=== PATIENT | male | born 1955 | race Caucasian/White ===

== ENCOUNTER 2016-11-03 09:28 | Day surgery (SDC) | payer BC ==
--- NOTE | 2016-11-02 12:40 | PCM.PREANE ---
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 Respiratory: Reports: no symptoms Cardiovascular: Reports: no symptoms GI: Reports: no symptoms - PHYSICAL ASSESSMENT Height: 1.75 m Weight: 95.254 kg ASA Class: 2 Mental Status: alert & oriented x3 Dentition: Reports: normal dentition ROM/Head Extension: full Respiratory Status: lungs clear to auscultation bilaterally Cardiovascular Status: regular rate & rhythm, normal S1, S2, no murmur - ALLERGIES Allergies/Adverse Reactions: Allergies Allergy/AdvReac Type Severity Reaction Status Date / Time No Known Allergies Allergy Verified 11/18/15 18:13 - BLOOD Blood Available: No - ANESTHESIA PLAN Preop Beta John Paul: No Anesthesia Type Planned: MAC - ACKNOWLEDGEMENTS Pt an appropriate candidate for the planned anesthesia: Yes Alternatives and risks of anesthesia discussed w pt/guardian: Yes Pt/Guardian understands and agree with anesthesia plan: Yes PreAnesthesia Questionnaire Cardiovascular History: Reports: High cholesterol, Hypertension Respiratory History: Reports: Sleep apnea Other Respiratory History: uses CPAP Other Gastrointestinal History: diverticulitis Musculoskeletal History: Reports: Fracture Other Musculoskeletal History: hx tx for fx hand Endocrine/Metabolic History: Reports: Hypothyroidism, Obesity/BMI 30+ - Past Surgical History Head Surgeries/Procedures: Reports: None GI Surgical History: Reports: Colonoscopy Musculoskeletal Surgical History: Reports: Arthroscopic knee, Shoulder surgery, Other (see below) Other Musculoskeletal Surgeries/Procedures:: left acl replaced, right rotator cuff, degloving right hand, - SUBSTANCE USE Smoking Status *Q: Never Smoker Recreational Drug Use History: No - HOME MEDS Home Medications: Home Meds Ezetimibe [Zetia] 10 mg PO DAILY 11/18/15 [History] Levothyroxine Sodium [Levothyroxine Sodium] 125 mg PO DAILY 11/18/15 [History] Rosuvastatin [Crestor] 20 mg PO DAILY 11/18/15 [History] Aspirin [[place] Aspirin] 81 mg PO DAILY 09/29/16 [History] Losartan Potassium 25 mg PO DAILY 09/29/16 [History]
[~2016-11-03 09:28] MED LIST: Lactated Ringers 1,000 ML IV SCH; Sodium Chloride 0.9% 10 ML Syringe FLUSH PRN; Sodium Chloride 0.9% 2.5 ML Syringe FLUSH PRN
[2016-11-03] MEDS ORDERED: Lidocaine 2% 5 ML SDV ONE (11:04)
[2016-11-03] MEDS ORDERED: Propofol 200 MG/20 ML SDV ONE ×2 (11:05→11:36)
[2016-11-03] MEDS ORDERED: fentaNYL 100 MCG/2 ML SDV ONE (11:05)
[2016-11-03] MEDS ORDERED: Midazolam 1 MG/ML 2 ML SDV ONE (11:05)
--- NOTE | 2016-11-03 11:52 | PCM.OPNOTE ---
- General Post-Op/Procedure Note Date of Surgery/Procedure: 11/03/16 Operative Procedure(s): Colonoscopy Findings: 2, 2mm polyps in sigmoid colon Pre Op Diagnosis: Screening colonoscopy Post-Op Diagnosis: Sigmoid colon polyp x 2 Anesthesia Technique: MAC Primary Surgeon: Florina Franco Condition: Good
--- NOTE | 2016-11-03 12:18 | PCM.POSTAN ---
POST ANESTHESIA ASSESSMENT - MENTAL STATUS Mental Status: alert, oriented - RESPIRATORY Respiratory Status: respiratory rate WNL, airway patent - CARDIOVASCULAR CV Status: pulse rate WNL, blood pressure stable - GASTROINTESTINAL GI Status: no symptoms - POST OP HYDRATION Hydration Status: adequate & stable
--- NOTE | 2016-11-03 12:19 | PCM48HPAN ---
Post Anesthesia Note - EVALUATION WITHIN 48HRS OF ANESTHETIC Vital Signs in Normal Range: Yes Patient Participated in Evaluation: Yes Respiratory Function Stable: Yes Airway Patent: Yes Cardiovascular Function Stable: Yes Hydration Status Stable: Yes Pain Control Satisfactory: Yes Nausea and Vomiting Control Satisfactory: Yes Mental Status Recovered: Yes
[2016-11-03 12:49] VITALS: BP 106/63
--- NOTE | 2016-11-03 15:22 | OR ---
SURGEON: YINA PIERCE MD DATE OF PROCEDURE: PREOPERATIVE DIAGNOSIS: Screening colonoscopy. POSTOPERATIVE DIAGNOSIS: Sigmoid colon polyps x2. PROCEDURE PERFORMED: Colonoscopy. INSTRUMENT USED: Olympus colonoscope. ANESTHESIA: MAC. EXTENT OF EXAM: To the cecum. PREPARATION: Good. LIMITATIONS: None. INDICATIONS FOR EXAMINATION: The patient is a 61-year-old male, who presents for a screening colonoscopy. We discussed the procedure as well as expected perioperative course. We discussed the risks, including bleeding, infection, or damage to surrounding structures, including perforation. The patient verbalized understanding and wished to proceed. PROCEDURE IN DETAIL: The patient was brought to the endoscopy suite and placed in a left lateral decubitus position. A time-out was completed verifying the patient's name, age, date of , allergies, and procedure to be performed. Monitored anesthesia care was induced and continuous oxygen was provided via face mask throughout the procedure. After adequate sedation was achieved, a digital rectal exam was performed. This examination was within normal limits. A well lubricated colonoscope was then inserted in the rectum and advanced under direct visualization to the level of cecum. The cecum was identified by both visual and anatomic landmarks. A photograph was taken of the cecal cap. I was unable to retroflex the scope within the cecum after multiple attempts. The scope was then fully withdrawn while examining the color, texture, anatomy, and integrity of the mucosa from the cecum to the anal canal. Two 2 mm pedunculated polyps were found within the sigmoid colon between the 30 and 35 cm kellen. These were removed with hot snare forceps. They were labeled as sigmoid colon polyps. The scope was then brought into the rectum and retroflexed to allow visualization of the anal canal opening which appeared normal. A photograph was taken. The anus to cecum time was 22 minutes. The patient was then transferred to the recovery room in stable condition. ENDOSCOPIC DIAGNOSIS: Two sigmoid colon polyps. RECOMMENDATIONS: Follow up in the clinic in 2 weeks. MYRA IGLESIAS /[id number]
== END 2016-11-03 12:48 | disposition home or self-care (01) ==
LOC: MW.SDS 09:28
PROVIDERS: ATTEND Surgery
PROC: 0DBN8ZZ Excision of Sigmoid Colon, Via Natural or Artificial Opening Endoscopic (ICD-10-PCS; principal; 2016-11-03)
DX: Z12.11 Encounter for screening for malignant neoplasm of colon (principal); D12.5 Benign neoplasm of sigmoid colon; K42.9 Umbilical hernia without obstruction or gangrene; K40.20 Bilateral inguinal hernia, without obstruction or gangrene, not specified as recurrent; Z87.19 Personal history of other diseases of the digestive system; Z80.0 Family history of malignant neoplasm of digestive organs; I10 Essential (primary) hypertension; E78.5 Hyperlipidemia, unspecified; E03.9 Hypothyroidism, unspecified; G47.30 Sleep apnea, unspecified; E66.9 Obesity, unspecified; Z79.82 Long term (current) use of aspirin; Z79.899 Other long term (current) drug therapy
CPT/HCPCS: 45385; J2250; J3010; J7120; 88305; J2704

== ENCOUNTER 2016-11-09 06:28 | Day surgery (SDC) | payer BC ==
[~2016-11-09 06:28] MED LIST changes: +ceFAZolin 2 GM in Premix Bag 1 BAG IV ONE
--- NOTE | 2016-11-09 06:52 | PCM.PREANE ---
Preanesthetic Assessment - Anesthesia/Transfusion/Family Hx Anesthesia History: Prior Anesthesia Without Reaction Transfusion History: No Prior Transfusion(s) - Physical Assessment O2 Sat by Pulse Oximetry: 95 Respiratory Rate: 16 Vital Signs: Last Vital Signs Temp 36.3 C 11/09/16 06:37 Pulse 72 11/09/16 06:37 Resp 16 11/09/16 06:37 BP 119/69 11/09/16 06:37 Pulse Ox 95 11/09/16 06:37 Height: 1.75 m Weight: 95.254 kg - Allergies Allergies/Adverse Reactions: Allergies Allergy/AdvReac Type Severity Reaction Status Date / Time No Known Allergies Allergy Verified 11/18/15 18:13 PreAnesthesia Questionnaire Cardiovascular History: Reports: High cholesterol, Hypertension Respiratory History: Reports: Sleep apnea Other Respiratory History: uses CPAP Other Gastrointestinal History: diverticulitis Musculoskeletal History: Reports: Fracture Other Musculoskeletal History: hx tx for fx hand Endocrine/Metabolic History: Reports: Hypothyroidism, Obesity/BMI 30+ - Past Surgical History Head Surgeries/Procedures: Reports: None GI Surgical History: Reports: Colonoscopy ( a week ago) Musculoskeletal Surgical History: Reports: Arthroscopic knee, Shoulder surgery, Other (see below) Other Musculoskeletal Surgeries/Procedures:: left acl replaced, right rotator cuff, degloving right hand, - SUBSTANCE USE Smoking Status *Q: Never Smoker Recreational Drug Use History: No - HOME MEDS Home Medications: Home Meds Ezetimibe [Zetia] 10 mg PO DAILY 11/18/15 [History] Levothyroxine Sodium 125 mg PO DAILY 11/18/15 [History] Rosuvastatin [Crestor] 20 mg PO DAILY 11/18/15 [History] Aspirin [[place] Aspirin] 81 mg PO DAILY 09/29/16 [History] Losartan Potassium 25 mg PO DAILY 09/29/16 [History] - CURRENT (IN HOUSE) MEDS Current Meds: Current Medications Lactated Ringer's (Ringers, Lactated) 1,000 mls @ 125 mls/hr IV ASDIRECTED SARAH Last Admin: 11/09/16 06:39 Dose: 125 mls/hr Sodium Chloride (Saline Flush) 10 ml FLUSH ASDIRECTED PRN PRN Reason: Keep Vein Open Sodium Chloride (Saline Flush) 2.5 ml FLUSH ASDIRECTED PRN PRN Reason: Keep Vein Open Discontinued Medications Cefazolin Sodium/Dextrose 2 gm (/ Premix) 50 mls @ 100 mls/hr IV ONETIME ONE Stop: 11/08/16 15:42 Preanesthetic Assessment - ANESTHESIA/TRANSFUSION/FAMILY HX Anesthesia/Transfusion History: Prior Anesthesia Type of Anesthesia Reaction: Denies: Allergy, Anesthesia Awareness, Excessive Somnolence, Excessive Nausea/Vomiting, Excessive Itching, Excessive Shivering, Malignant Hyperthermia, Malignant Hyperthermia, Family History, Pseudocholinesterase Deficiency, Pseudocholinesterase Deficiency, Family History of, Urinary Retention, Unknown, Other (see below) Family History of Anesthesia Reaction: No Other Intubation History Comment: no known problems - REVIEW OF SYSTEMS Constitutional: Reports: 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 Respiratory: Reports: no symptoms Cardiovascular: Reports: no symptoms GI: Reports: no symptoms Other: Reports: None - PHYSICAL ASSESSMENT O2 Sat by Pulse Oximetry: 95 RR: 16 Vital Signs: Last Vital Signs Temp 36.3 C 11/09/16 06:37 Pulse 72 11/09/16 06:37 Resp 16 11/09/16 06:37 BP 119/69 11/09/16 06:37 Pulse Ox 95 11/09/16 06:37 Height: 1.75 m Weight: 95.254 kg ASA Class: 2 Mental Status: Alert & Oriented x3 Airway Class: Mallampati = 2 Dentition: Reports: Normal Dentition Thyro-Mental Finger Breadths: 3 Mouth Opening Finger Breadths: 3 ROM/Head Extension: Limited/Partial Respiratory Status: lungs clear to auscultation bilaterally Cardiovascular Status: regular rate & rhythm, normal S1, S2, no murmur, blood pressure WNL - ALLERGIES Allergies/Adverse Reactions: Allergies Allergy/AdvReac Type Severity Reaction Status Date / Time No Known Allergies Allergy Verified 11/18/15 18:13 - BLOOD Blood Available: No - ANESTHESIA PLAN Preop Beta John Paul: No Anesthesia Type Planned: General Anesthesia - ACKNOWLEDGEMENTS Pt an Appropriate Candidate for the Planned Anesthesia: Yes Alternatives and Risks of Anesthesia Discussed w Pt/Guardian: Yes Pt/Guardian Understands and Agrees with Anesthesia Plan: Yes
[2016-11-09] MEDS ORDERED: Rocuronium 10 MG/ML 10 ML Syringe ONE (07:23)
[2016-11-09] MEDS ORDERED: Ondansetron 4 MG/2 ML SDV ONE (07:23)
[2016-11-09] MEDS ORDERED: Lidocaine 2% 5 ML SDV ONE (07:23)
[2016-11-09] MEDS ORDERED: Propofol 200 MG/20 ML SDV ONE (07:24)
[2016-11-09] MEDS ORDERED: fentaNYL 250 MCG/5 ML SDV ONE (07:24)
[2016-11-09] MEDS ORDERED: Midazolam 1 MG/ML 2 ML SDV ONE (07:24)
[2016-11-09] MEDS ORDERED: Bupivacaine 0.25%/EPINEPHrine 1:200,000 10 ML SDV ONE (07:27)
[2016-11-09] MEDS ORDERED: Bupivacaine 0.5% 10 ML SDV ONE (07:27)
[2016-11-09] MEDS ORDERED: ceFAZolin 1 GM Vial ONE (07:28)
[2016-11-09] MEDS ORDERED: Dexamethasone 4 MG/ML 5 ML MDV ONE (07:58)
[2016-11-09] MEDS ORDERED: HYDROmorphone 2 MG/ML Syringe ONE (07:59)
[2016-11-09] MEDS ORDERED: ePHEDrine 50 MG/ML SDV ONE (08:16)
[2016-11-09] MEDS ORDERED: Phenylephrine/Normal Saline 100 MCG/ML 10 ML Syringe ONE (09:00)
[2016-11-09] MEDS ORDERED: Phenylephrine 1% 10 MG/ML SDV ONE (09:00)
[2016-11-09] MEDS ORDERED: Ketorolac 30 MG/ML SDV ONE (09:32)
[2016-11-09] MEDS ORDERED: Octyl 2-Cyanoacrylate 1 Tube ONE (10:02)
[2016-11-09] MEDS ORDERED: Acetaminophen/oxyCODONE 325-5 MG Tab PO PRN (10:41)
--- NOTE | 2016-11-09 10:41 | PCM.OPNOTE ---
- General Post-Op/Procedure Note Date of Surgery/Procedure: 11/09/16 Operative Procedure(s): Bilateral inguinal hernia, umbilical hernia repair Findings: Bilateral fat containing indirect hernias, 5mm supraumbilical hernia Pre Op Diagnosis: Umbilical hernia, bilateral inguinal hernias Post-Op Diagnosis: same Anesthesia Technique: MAC Primary Surgeon: Florina Franco Fluid Replacement, Intraop: 2,500 Output, Urine Amount: 200 EBL in mLs: 20 Condition: Good
[2016-11-09] MEDS: fentaNYL 100 MCG/2 ML SDV IVPUSH PRN ×2 (11:00→11:05)
--- NOTE | 2016-11-09 11:35 | PCM.POSTAN ---
POST ANESTHESIA ASSESSMENT - MENTAL STATUS Mental Status: alert - RESPIRATORY Respiratory Status: respiratory rate WNL, airway patent, O2 saturation stable - CARDIOVASCULAR CV Status: pulse rate WNL, blood pressure stable - GASTROINTESTINAL GI Status: no symptoms - PAIN Pain Score: 5 - POST OP HYDRATION Hydration Status: adequate & stable - OBSERVATIONS Free Text/Narrative:: no anesthesia problems
[2016-11-09 14:21] VITALS: BP 121/67
--- NOTE | 2016-11-10 13:00 | OR ---
SURGEON: YINA PIERCE MD DATE OF PROCEDURE: 11/09/2016 PREOPERATIVE DIAGNOSIS: Bilateral inguinal hernias, umbilical hernia. POSTOPERATIVE DIAGNOSIS: Bilateral indirect inguinal hernias, umbilical hernia. PROCEDURE PERFORMED: Bilateral inguinal hernia repair, umbilical hernia repair. FLUIDS: 2500 mL crystalloid. EBL: 20 mL. URINE OUTPUT: 200. FINDINGS: Bilateral fat containing indirect hernias. A 5 mm umbilical hernia. COMPLICATIONS: None. INDICATIONS: The patient is a 61-year-old male who presented to my clinic with complaints of a left inguinal hernia. He had recently had a CT done that showed an umbilical and right inguinal hernia. He was told he had these hernias and after finding out about them, realized that the right groin discomfort he was having was most likely due to this hernia. The patient came to me requesting to have all 3 hernias fixed at the same time. We discussed the procedure as well as expected perioperative course. We discussed the risks of the procedure including bleeding, infection, or damage to surrounding structures. The patient verbalized understanding and wishes to proceed. PROCEDURE IN DETAIL: The patient was brought into the operating room and placed on the operating room table in supine position. A time-out was completed verifying the patient's name, age, date of , allergies, and procedure to be performed. General endotracheal anesthesia was then induced. The abdomen was prepped and draped in the usual sterile fashion. We first started on the right side as this side was most symptomatic. A field block was produced by raising skin wheals along the proposed skin incision. Additional local anesthesia (0.5% marcaine) was injected 1 cm lateral and superior to the anterior superior iliac spine. An incision was made approximately 2 fingerbreadths above the inguinal ligament using a 15 blade and deepened through Camper's and Nisha's fascia with electrocautery until the aponeurosis of the external oblique was encountered. This was cleaned and the external ring was exposed. Hemostasis was achieved in the wound. An incision was made in the midportion of the external oblique aponeurosis in the direction of its fibers. The ilioinguinal nerve was identified and protected throughout the dissection. The flaps of the external oblique were developed cephalad and inferiorly. The cord was identified. It was gently dissected free at the pubic tubercle and encircled with a Candis drain. Attention was directed to the anteromedial aspect of the cord, where an indirect hernia sac was identified with a small amount of preperitoneal fat in it. The sac was carefully dissected free of the cord down to the level of the internal ring. The sac itself was flimsy and was opened. The contents were inspected for any bowel and none was noted.The vas and testicular vessels were identified and protected from harm. A finger was passed in the peritoneal cavity and the floor of the inguinal canal assessed and found to be strong. The preperitoneal fat was not able to be reduced so it was clamped and suture-ligated with 3-0 silk. The redundant fat was then excised and sent to pathology. A large polypropylene mesh patch was brought into the field. This was slightly to large so it was trimmed to fit. This was sutured to the pubic tubercle proximally using 0 Ethibond suture. The mesh was then sutured to the inguinal ligament inferiorly and to the conjoint tendon superiorly using interrupted 0 Ethibond suture. The tails of the mesh were wrapped around the cord. Care was taken to assure the mesh was placed in a relaxed fashion to avoid excessive tension and that no neurovascular structures were caught in the repair. Laterally, the tails of the mesh were crossed and the internal ring created allowing passage of the very tip of my finger. Hemostasis was again checked. The Candis drain was removed. The external oblique aponeurosis was closed with a running suture of 3-0 Vicryl taking care not to catch the ilioinguinal nerve and the suture line. Nisha's fascia was then closed with interrupted 3-0 Vicryl. I then turned my attention to the left side. Using 0.5% Marcaine, a field block was then again done. I made an incision 2 to 3 fingerbreadths above the inguinal ligament using a 15 blade. This was deepened through Nisha's and Camper's fascia with electrocautery until the aponeurosis of the external oblique was encountered. This was cleaned and the external ring was exposed. Hemostasis was achieved in the wound. An incision was made in the midportion of the external oblique aponeurosis in the direction of its fibers. The ilioinguinal nerve was identified and protected throughout the dissection. Flaps of the external oblique were developed cephalad and inferiorly. The cord was identified. It was gently dissected free at the pubic tubercle and encircled with a [place] drain. Attention was directed to the anteromedial aspect of the cord where an indirect hernia sac was identified. The sac was carefully dissected free of the cord down to the level of the internal ring. The vas and testicular vessels were identified and protected from harm. The sac was opened and the contents were reduced. A finger was passed in the peritoneal cavity, and the floor of the inguinal canal assessed and found to be strong. Since I was able to easily reduce the contents, the sac was not resected. Attention was turned to the floor of the canal, which was strong. A large polypropylene mesh patch was brought into the field and cut to the appropriate size with an oval port medial portion and a longitudinal lateral opening. Beginning at the pubic tubercle, the mesh was sutured to the pubic tubercle using an interrupted 0 Ethibond suture. The mesh was then sutured to the inguinal ligament inferiorly and conjoint tendon superiorly using interrupted 0 Ethibond sutures. Care was taken to assure that the mesh was placed in a relaxed fashion to avoid excessive tension and that no neurovascular structures were caught in the repair. Laterally, the tails of the mesh were crossed and the internal ring recreated allowing for passage of the very tip of my finger. Hemostasis was again checked. The Candis drain was removed. The external oblique aponeurosis was closed with a running suture 3-0 Vicryl taking care not to catch the ilioinguinal nerve and the suture line. Nisha's fascia was closed with interrupted 3-0 Vicryl. I then turned my attention to the umbilicus. A supraumbilical incision was made along the supraumbilical skin fold. Dissection was carried down to the level of the fascia using electrocautery. A small 5-mm defect was noted at the supraumbilical fascia. A small fat-containing hernia sac was noted. This was freed from the surrounding subcuticular structures with gentle blunt dissection and able to be easily reduced. Given the small size of the hernia, the decision was made to repair this primarily. The defect was closed in horizontal fashion using 0 Ethibond sutures. The umbilical stalk was then anchored to the surrounding structures with interrupted 3-0 Vicryl. All skin incisions were then closed with a subcuticular suture of 4-0 Monocryl. Dermabond was applied at the umbilicus and Steri-Strips were applied along the inguinal incisions. Sterile dressings were applied. Counts were complete and correct at the end of the case. The patient was extubated and taken to the PACU in stable condition. MYRA IGLESIAS /[id number] MTDD
== END 2016-11-09 15:10 | disposition home or self-care (01) ==
LOC: MW.SDS 06:28
PROVIDERS: ATTEND Surgery
PROC: 0YUA0JZ Supplement Bilateral Inguinal Region with Synthetic Substitute, Open Approach (ICD-10-PCS; principal; 2016-11-09)
PROC: 0WUF0JZ Supplement Abdominal Wall with Synthetic Substitute, Open Approach (ICD-10-PCS; 2016-11-09)
DX: K40.20 Bilateral inguinal hernia, without obstruction or gangrene, not specified as recurrent (principal); K42.9 Umbilical hernia without obstruction or gangrene; I10 Essential (primary) hypertension; E78.00 Pure hypercholesterolemia, unspecified; G47.30 Sleep apnea, unspecified; E03.9 Hypothyroidism, unspecified; E66.9 Obesity, unspecified; Z79.82 Long term (current) use of aspirin; Z79.899 Other long term (current) drug therapy; Z98.890 Other specified postprocedural states; Z68.31 Body mass index [BMI] 31.0-31.9, adult
CPT/HCPCS: 49505; 49585; 88302; A9270; C1781; J1100; J1170; J1885; J2250; J2370; J2405; J3010; J7120; 00830; J0690; J2704

== ENCOUNTER → 2016-11-13 | Outpatient (CLI) | payer BC ==
[~2016-11-13] MED LIST changes: +Iopamidol 755 MG/ML 500 ML Multipack Bottle IVPUSH STA; -Lactated Ringers 1,000 ML IV SCH; -Sodium Chloride 0.9% 10 ML Syringe FLUSH PRN; -Sodium Chloride 0.9% 2.5 ML Syringe FLUSH PRN; -ceFAZolin 2 GM in Premix Bag 1 BAG IV ONE
--- NOTE | 2016-11-13 11:31 | CT ---
EXAMINATION: CT chest with and without contrast HISTORY: Solitary pulmonary nodule COMPARISON: CT abdomen and pelvis dated 11/18/2015. TECHNIQUE: Axial CT images obtained through the chest before and following the administration of 75 mL of Isovue-370 in the right antecubital fossa. Coronal and sagittal reconstructions obtained. FINDINGS: There is a stable 7 x 4 mm intrafissural nodule within the left lung. Mild dependent atele ctasis is noted. No pleural effusion or pneumothorax. The heart is normal in size without a pericard ial effusion. Coronary artery calcifications are present. The thoracic aorta is normal in caliber. T he main and central pulmonary arteries appear normal. No mediastinal, axillary, hilar lymphadenopath y. The central airways are clear. There is a tiny 8 mm enhancing lesion within the posterior right hepatic lobe, most likely represent ing an atypical hemangioma. No suspicious osseous abnormalities. IMPRESSION: 1. There is a stable nodule within the left lung, likely an intrafissural lymph node, unchanged. 2. No acute cardiopulmonary findings. 3. Coronary artery calcifications and stents noted. 4. Tiny hyperenhancing millimeter right hepatic nodule , likely an atypical hemangioma.
== END ==
LOC: MW.DI 08:20
PROVIDERS: ATTEND Surgery
DX: R91.1 Solitary pulmonary nodule (principal); Z95.5 Presence of coronary angioplasty implant and graft
CPT/HCPCS: 71270; Q9967

== ENCOUNTER 2017-02-07 09:04 | Day surgery (SDC) | payer BC ==
[~2017-02-07 09:04] MED LIST changes: +Bupivacaine 0.25%/EPINEPHrine 1:200,000 10 ML SDV ONE; +Bupivacaine 0.5% 30 ML SDV ONE; -Iopamidol 755 MG/ML 500 ML Multipack Bottle IVPUSH STA; +Lactated Ringers 1,000 ML IV SCH; +Lidocaine 2% 5 ML SDV ONE; +Midazolam 1 MG/ML 2 ML SDV ONE; +Propofol 200 MG/20 ML SDV ONE; +Rocuronium 10 MG/ML 10 ML Syringe ONE; +Sodium Chloride 0.9% 10 ML Syringe FLUSH PRN; +Sodium Chloride 0.9% 2.5 ML Syringe FLUSH PRN; +Succinylcholine/Normal Saline 200 MG/10 ML Syringe ONE; +ceFAZolin 2 GM in Premix Bag 1 BAG IV ONE; +fentaNYL 100 MCG/2 ML SDV ONE
--- NOTE | 2017-02-07 10:04 | PCM.PREANE ---
Preanesthetic Assessment - Anesthesia/Transfusion/Family Hx Anesthesia History: Prior Anesthesia Without Reaction Family History of Anesthesia Reaction: No Transfusion History: No Prior Transfusion(s) Intubation History: Unknown - Review of Systems General: No Symptoms Pulmonary: No Symptoms Cardiovascular: No Symptoms Gastrointestinal: No symptoms Neurological: No Symptoms Other: Reports: None - Physical Assessment NPO Status Date: 02/06/17 NPO Status Time: 19:00 O2 Sat by Pulse Oximetry: 98 Respiratory Rate: 16 Vital Signs: Last Vital Signs Temp 36.7 C 02/07/17 09:09 Pulse 60 02/07/17 09:09 Resp 16 02/07/17 09:09 BP 144/93 H 02/07/17 09:09 Pulse Ox 98 02/07/17 09:09 Height: 1.75 m Weight: 95.254 kg ASA Class: 2 Mental Status: Alert & Oriented x3 Airway Class: Mallampati = 2 Dentition: Reports: Normal Dentition Thyro-Mental Finger Breadths: 3 Mouth Opening Finger Breadths: 3 ROM/Head Extension: Full Lungs: Clear to auscultation, Normal respiratory effort Cardiovascular: Regular Rate, Regular Rhythm - Allergies Allergies/Adverse Reactions: Allergies Allergy/AdvReac Type Severity Reaction Status Date / Time No Known Allergies Allergy Verified 11/18/15 18:13 - Blood Blood Available: No - Anesthesia Plan Pre-Op Medication Ordered: None - Acknowledgements Anesthesia Type Planned: General Anesthesia Pt an Appropriate Candidate for the Planned Anesthesia: Yes Alternatives and Risks of Anesthesia Discussed w Pt/Guardian: Yes Pt/Guardian Understands and Agrees with Anesthesia Plan: Yes PreAnesthesia Questionnaire Cardiovascular History: Reports: High Cholesterol, Hypertension Respiratory History: Reports: Sleep Apnea Other Respiratory History: uses CPAP Other Gastrointestinal History: diverticulitis Musculoskeletal History: Reports: Fracture Other Musculoskeletal History: hx tx for fx hand Endocrine/Metabolic History: Reports: Hypothyroidism, Obesity/BMI 30+ - Past Surgical History Head Surgeries/Procedures: Reports: None GI Surgical History: Reports: Colonoscopy, Hernia, Inguinal (bilateral inguinal hernia 3 months ago with umbilical hernia repair) Musculoskeletal Surgical History: Reports: Arthroscopic Knee, Shoulder Surgery, Other (See Below) Other Musculoskeletal Surgeries/Procedures:: left acl replaced, right rotator cuff, degloving right hand, - SUBSTANCE USE Smoking Status *Q: Never Smoker Recreational Drug Use History: No - HOME MEDS Home Medications: Home Meds Ezetimibe [Zetia] 10 mg PO DAILY 11/18/15 [History] Levothyroxine Sodium 125 mg PO DAILY 11/18/15 [History] Rosuvastatin [Crestor] 20 mg PO DAILY 11/18/15 [History] Aspirin [[place] Aspirin] 81 mg PO DAILY 09/29/16 [History] Losartan Potassium 25 mg PO DAILY 09/29/16 [History] - CURRENT (IN HOUSE) MEDS Current Meds: Current Medications Lactated Ringer's (Ringers, Lactated) 1,000 mls @ 125 mls/hr IV ASDIRECTED SARAH Last Admin: 02/07/17 09:35 Dose: 125 mls/hr Sodium Chloride (Saline Flush) 10 ml FLUSH ASDIRECTED PRN PRN Reason: Keep Vein Open Sodium Chloride (Saline Flush) 2.5 ml FLUSH ASDIRECTED PRN PRN Reason: Keep Vein Open Discontinued Medications Bupivacaine HCl (Marcaine 0.5%) Confirm Administered Dose 30 ml .ROUTE .STK-MED ONE Stop: 02/07/17 06:52 Bupivacaine HCl/Epinephrine Bitart (Marcaine 0.25%/Epinephrine 1:200,000) Confirm Administered Dose 70 ml .ROUTE .STK-MED ONE Stop: 02/07/17 07:33 Fentanyl (Sublimaze) Confirm Administered Dose 100 mcg .ROUTE .STK-MED ONE Stop: 02/07/17 08:33 Cefazolin Sodium/Dextrose 2 gm (/ Premix) 50 mls @ 100 mls/hr IV ONETIME ONE Stop: 02/06/17 17:42 Lidocaine (Xylocaine-Mpf 2%) Confirm Administered Dose 5 ml .ROUTE .STK-MED ONE Stop: 02/07/17 08:32 Midazolam HCl (Versed 1 Mg/Ml) Confirm Administered Dose 2 mg .ROUTE .STK-MED ONE Stop: 02/07/17 08:33 Propofol (Diprivan 20 Ml) Confirm Administered Dose 200 mg .ROUTE .STK-MED ONE Stop: 02/07/17 08:33 Rocuronium [place] (Zemuron) Confirm Administered Dose 100 mg .ROUTE .STK-MED ONE Stop: 02/07/17 08:32 Succinylcholine Chloride (Succinylcholine In Ns Pf) Confirm Administered Dose 200 mg .ROUTE .STK-MED ONE Stop: 02/07/17 08:32
[2017-02-07] MEDS ORDERED: Bupivacaine 0.25%/EPINEPHrine 1:200,000 10 ML SDV ONE ×2 (10:54→12:57)
[2017-02-07] MEDS ORDERED: Sodium Chloride 0.9% 40 ML ONE (11:05)
[2017-02-07] MEDS ORDERED: ceFAZolin 1 GM Vial ONE (11:05)
[2017-02-07] MEDS ORDERED: HYDROmorphone 2 MG/ML Syringe ONE (11:37)
[2017-02-07] MEDS ORDERED: Phenylephrine/Normal Saline 100 MCG/ML 10 ML Syringe ONE (12:19)
[2017-02-07] MEDS ORDERED: Neostigmine Methylsulfate 1 MG/ML 5 ML Syringe ONE (12:56)
[2017-02-07] MEDS ORDERED: Ketorolac 30 MG/ML SDV ONE (12:56)
[2017-02-07] MEDS ORDERED: Ondansetron 4 MG/2 ML SDV ONE (12:56)
--- NOTE | 2017-02-07 13:20 | PCM.OPNOTE ---
- General Post-Op/Procedure Note Date of Surgery/Procedure: 02/07/17 Operative Procedure(s): Recurrent left inguinal hernia repair Findings: Indirect inguinal hernia. Mesh intact. Pre Op Diagnosis: recurrent inguinal hernia Post-Op Diagnosis: same Anesthesia Technique: General ET tube Primary Surgeon: Florina Franco Secondary Surgeon: Rene De La Fuente Fluid Replacement, Intraop: 1,800 EBL in mLs: 20 Condition: Good
[2017-02-07] MEDS: fentaNYL 100 MCG/2 ML SDV IVPUSH PRN ×2 (13:25→13:30)
--- NOTE | 2017-02-07 13:52 | PCM.POSTAN ---
POST ANESTHESIA ASSESSMENT - MENTAL STATUS Mental Status: alert, oriented - RESPIRATORY Respiratory Status: respiratory rate WNL, airway patent, O2 saturation stable - CARDIOVASCULAR CV Status: pulse rate WNL, blood pressure stable - GASTROINTESTINAL GI Status: no symptoms - PAIN Pain Score: 5 - POST OP HYDRATION Hydration Status: adequate & stable - OBSERVATIONS Free Text/Narrative:: no anesthesia problems
[2017-02-07] MEDS ORDERED: Acetaminophen/HYDROcodone 325-5 MG Tab PO ONE (14:08)
--- NOTE | 2017-02-07 15:33 | PCM48HPAN ---
Post Anesthesia Note - EVALUATION WITHIN 48HRS OF ANESTHETIC Vital Signs in Normal Range: Yes Patient Participated in Evaluation: Yes Respiratory Function Stable: Yes Airway Patent: Yes Cardiovascular Function Stable: Yes Hydration Status Stable: Yes Pain Control Satisfactory: Yes Nausea and Vomiting Control Satisfactory: Yes Mental Status Recovered: Yes - COMMENTS/OBSERVATIONS Free Text/Narrative:: Pt stable with no complaints
[2017-02-07 15:41] VITALS: BP 151/79
--- NOTE | 2017-02-07 22:29 | OR ---
SURGEON: YINA PIERCE MD DATE OF PROCEDURE: 02/07/2017 PREOPERATIVE DIAGNOSIS: Recurrent left inguinal hernia. POSTOPERATIVE DIAGNOSIS: Recurrent left inguinal hernia. PROCEDURE PERFORMED: Repair of recurrent left inguinal hernia. GEOGRAPHIC AREA INTELLIGENCE OFFICER: Contractor Buyer: Dr. Rene De La Fuente. ANESTHESIA: General endotracheal anesthesia. ESTIMATED BLOOD LOSS: 20 mL. FLUIDS: 1800 mL crystalloid. FINDINGS: Left indirect inguinal hernia. The patient had a small fat-containing hernia that went through his mesh along the spermatic cord. A small plug placed and hole tightened. COMPLICATIONS: None. INDICATIONS: The patient is a 61-year-old male, who presents 3 months after repair of a left inguinal hernia. He was lifting a large cooler full of beverages out of his truck when he felt a tearing sensation. Afterwards, he developed sharp left inguinal pain that radiated down into the scrotum and down the inner aspect of his left leg. The patient was initially treated conservatively with pain medicines, but while getting out of a truck 2 days ago, the patient experienced sharp pain that did not go away. A CT of the abdomen and pelvis showed a recurrent left inguinal hernia. The patient and I discussed repair. I explained that I feel more comfortable performing this recurrent repair open to allow me to inspect the mesh that I previously placed. We discussed the risks, including bleeding, infection, or damage to surrounding structures. The patient understands the risks are higher this time given the recurrent nature of the repair. The patient verbalized understanding and wished to proceed. PROCEDURE IN DETAIL: The patient was brought to the OR and placed on the OR table in supine position. A time-out was completed verifying the patient's name, age, date of , allergies, and procedure to be performed. General endotracheal anesthesia was induced. The abdomen was prepped and draped in usual standard fashion. 0.5% Marcaine plain was used to anesthetize the area over the previous left inguinal incision. I opened the incision with the 10 blade scalpel. Cautery was used to dissect through the subcutaneous tissues down through the previous external oblique fascia. This layer of the abdominal wall was difficult to ascertain given that it had been previously opened. Once I again through this layer, I was able to identify the spermatic cord and the vessels deep below it. A Candis drain was used to encircle these vascular structures near the pubic tubercle. Once these were isolated, I then began dissecting over bluntly around my mesh to ensure that it was secured and not come undone. The mesh itself both laterally and medially appeared to be intact with no evidence of disruption. I inspected the medial aspect especially well given this can sometimes be the cause of the recurrent hernia. The mesh was anchored securely to the pubic tubercle. I asked Dr. Rene De La Fuente to come and assist me with the remainder of the case given the difficult anatomic planes. We then turned our attention to the spermatic cord. Using blunt dissection, we were able to dissect around the spermatic vessels and encircled them with a [place]. We were able to identify an indirect hernia sac containing fat. This was dissected free of the spermatic cord and vessels and ligated at the opening of the mesh. A small vessel was noted. This was isolated and tied off with a 3-0 Vicryl. The defect in the mesh did not seem particularly large, but was reinforced with a small plug. 0 Ethibond sutures were used to tighten the defect through the mesh to prevent any further recurrence. This was done taking great care to identify and sweep the spermatic cord and vessels out of the way. Once this was completed, I irrigated the left groin copiously with normal saline. The field was hemostatic. I then closed the subcutaneous tissues with a running 0 Vicryl suture. I anesthetized the area around the incision again with 0.5% Marcaine plain. I closed the skin with a running 4-0 Monocryl suture. Steri-Strips and sterile dressings were applied. The counts were complete and correct at the end of the case. The left testicle was in the scrotum at the end of the case. The patient was awoken and taken to the PACU in stable condition. MYRA / KELSIE /[id number]
== END 2017-02-07 15:31 | disposition home or self-care (01) ==
LOC: MW.SDS 09:04
PROVIDERS: ATTEND Surgery
PROC: 0YU60JZ Supplement Left Inguinal Region with Synthetic Substitute, Open Approach (ICD-10-PCS; principal; 2017-02-07)
DX: K40.91 Unilateral inguinal hernia, without obstruction or gangrene, recurrent (principal); I10 Essential (primary) hypertension; E78.00 Pure hypercholesterolemia, unspecified; G47.30 Sleep apnea, unspecified; E03.9 Hypothyroidism, unspecified; E66.9 Obesity, unspecified; Z79.82 Long term (current) use of aspirin; Z79.899 Other long term (current) drug therapy; Z98.890 Other specified postprocedural states; Z99.89 Dependence on other enabling machines and devices
CPT/HCPCS: 49520; A9270; C1781; J0690; J1170; J1885; J2250; J2405; J3010; J7120; 00830; J2704

== ENCOUNTER 2019-06-15 10:45 | Emergency (ER) | payer BC ==
[2019-06-15] MEDS ORDERED: Sodium Chloride 0.9% 10 ML Syringe FLUSH PRN (11:02)
[2019-06-15] MEDS ORDERED: Sodium Chloride 0.9% 2.5 ML Syringe FLUSH PRN (11:02)
--- NOTE | 2019-06-15 11:16 | EDM.PDOC ---
ED HPI GENERAL MEDICAL PROBLEM - General Chief Complaint: Gastrointestinal Problem Stated Complaint: DIVERTICULITIS Time Seen by Provider: 06/15/19 11:16 Source of Information: Reports: Patient History Limitations: Reports: No Limitations - History of Present Illness INITIAL COMMENTS - FREE TEXT/NARRATIVE: HISTORY AND PHYSICAL: History of present illness: Patient is a 63-year-old male presents to the ED with complaint diverticulitis. He reports a history of acute diverticulitis 1 year ago and had a follow up colonoscopy at that time. He states the past 3 days he is having similar symptoms including left lower abdominal pain and cramping and nonbloody diarrhea. He denies fevers, chills, nausea, vomiting. He denies significant past surgical history. Review of systems: As per history of present illness and below otherwise all systems reviewed and negative. Past medical history: As per history of present illness and as reviewed below otherwise noncontributory. Surgical history: As per history of present illness and as reviewed below otherwise noncontributory. Social history: No reported history of drug or alcohol abuse. Family history: As per history of present illness and as reviewed below otherwise noncontributory. Physical exam: General: Patient sitting comfortably in no acute distress and nontoxic appearing HEENT: Atraumatic, normocephalic, pupils reactive, negative for conjunctival pallor or scleral icterus, mucous membranes moist, throat clear, neck supple, nontender, trachea midline. No meningeal signs. Lungs: Clear to auscultation, breath sounds equal bilaterally, chest nontender. Heart: S1S2, regular, negative for clicks, rubs, or overt murmur. Abdomen: Left lower abdominal tenderness to palpation. Soft, nondistended. Negative for masses or hepatosplenomegaly. Negative for costovertebral tenderness. No rigidity, rebound, guarding. Pelvis: Stable nontender. Genitourinary: Deferred. Rectal: Deferred. Extremities: Atraumatic, negative for cords or calf pain. Neurovascular unremarkable. Neuro: Awake, alert, oriented. Cranial nerves II through XII unremarkable. Cerebellum unremarkable. Motor and sensory unremarkable throughout. Exam nonfocal. Notes: Patient declines pain medication but requesting something for the cramping. Diagnostics: CBC, CMP, CT abdomen/pelvis Therapeutics: Bentyl 10mg PO Prescriptions: Cipro Flagyl Bentyl Impression: Acute diverticulitis Plan: Take antibiotic as instructed Follow up with general surgery, call number to schedule an appointment Return to ED as needed as discussed Definitive disposition and diagnosis as appropriate pending reevaluation and review of above. Lower Abdominal Pain Score (Numeric/FACES): 7 - Related Data Allergies Allergy/AdvReac Type Severity Reaction Status Date / Time No Known Allergies Allergy Verified 06/15/19 11:01 Home Meds: Home Meds Levothyroxine Sodium 125 mg PO DAILY 11/18/15 [History] Rosuvastatin [Crestor] 20 mg PO DAILY 11/18/15 [History] Aspirin [Woodruff Aspirin EC] 81 mg PO DAILY 09/29/16 [History] Losartan Potassium 25 mg PO DAILY 09/29/16 [History] Ciprofloxacin HCl [Cipro] 500 mg PO BID 10 Days #20 tablet 06/15/19 [Rx] Dicyclomine [Bentyl] 20 mg PO QID PRN #20 tab 06/15/19 [Rx] metroNIDAZOLE [Flagyl] 500 mg PO TID 10 Days #30 tab 06/15/19 [Rx] Past Medical History Cardiovascular History: Reports: High Cholesterol, Hypertension Respiratory History: Reports: Sleep Apnea Other Respiratory History: uses CPAP Other Gastrointestinal History: diverticulitis Musculoskeletal History: Reports: Fracture Other Musculoskeletal History: hx tx for fx hand Endocrine/Metabolic History: Reports: Hypothyroidism, Obesity/BMI 30+ - Infectious Disease History Infectious Disease History: Reports: Chicken Pox - Past Surgical History Head Surgeries/Procedures: Reports: None GI Surgical History: Reports: Colonoscopy, Hernia, Inguinal Musculoskeletal Surgical History: Reports: Arthroscopic Knee, Shoulder Surgery, Other (See Below) Other Musculoskeletal Surgeries/Procedures:: left acl replaced, right rotator cuff, degloving right hand, Social & Family History - Family History Family Medical History: Noncontributory Cardiac: Reports: CAD Endocrine/Metabolic: Reports: Diabetes, Type I Oncologic: Reports: Other (See Below) Other Oncologic Family History: skin - Tobacco Use Smoking Status *Q: Never Smoker - Caffeine Use Caffeine Use: Reports: Coffee - Recreational Drug Use Recreational Drug Use: No ED ROS GENERAL - Review of Systems Review Of Systems: ROS reveals no pertinent complaints other than HPI. ED EXAM, GI/ABD - Physical Exam Exam: See Below (see dictation) Course - Vital Signs Last Recorded V/S: Last Vital Signs Temp 97.4 F 06/15/19 11:02 Pulse 81 10/20/19 12:18 Resp 16 06/15/19 12:18 BP 140/76 06/15/19 12:18 Pulse Ox 95 06/15/19 12:18 - Orders/Labs/Meds Orders: Active Orders 24 hr Category Date Time Status Sodium Chloride 0.9% [Saline Flush] Med 06/15/19 11:02 Active 10 ml FLUSH ASDIRECTED PRN Sodium Chloride 0.9% [Saline Flush] Med 06/15/19 11:02 Active 2.5 ml FLUSH ASDIRECTED PRN Saline Lock Insert [OM.PC] Stat Oth 06/15/19 11:02 Ordered Medication Orders Sodium Chloride (Saline Flush) 10 ml FLUSH ASDIRECTED PRN PRN Reason: Keep Vein Open Last Admin: 06/15/19 12:22 Dose: 10 ml Sodium Chloride (Saline Flush) 2.5 ml FLUSH ASDIRECTED PRN PRN Reason: Keep Vein Open Last Admin: 06/15/19 12:22 Dose: 2.5 ml Labs: Laboratory Tests 06/15/19 06/15/19 Range/Units 11:11 11:11 WBC 10.86 (4.0-11.0) K/uL RBC 5.42 (4.50-5.90) M/uL Hgb 17.2 H (13.0-17.0) g/dL Hct 50.5 H (38.0-50.0) % MCV 93.2 (80.0-98.0) fL MCH 31.7 (27.0-32.0) pg MCHC 34.1 (31.0-37.0) g/dL RDW Std Deviation 45.0 (28.0-62.0) fl RDW Coeff of Bridget 13 (11.0-15.0) % Plt Count 232 (150-400) K/uL MPV 10.10 (7.40-12.00) fL Neut % (Auto) 79.4 (48.0-80.0) % Lymph % (Auto) 9.0 L (16.0-40.0) % [place] % (Auto) 10.0 (0.0-15.0) % Eos % (Auto) 1.4 (0.0-7.0) % Baso % (Auto) 0.2 (0.0-1.5) % Neut # (Auto) 8.6 H (1.4-5.7) K/uL Lymph # (Auto) 1.0 (0.6-2.4) K/uL [place] # (Auto) 1.1 H (0.0-0.8) K/uL Eos # (Auto) 0.2 (0.0-0.7) K/uL Baso # (Auto) 0.0 (0.0-0.1) K/uL Nucleated RBC % 0.0 /100WBC Nucleated RBCs # 0 K/uL Sodium 142 (136-148) mmol/L Potassium 4.1 (3.5-5.1) mmol/L Chloride 105 (98-107) mmol/L Carbon Dioxide 25.7 (21.0-32.0) mmol/L BUN 12 (7.0-18.0) mg/dL Creatinine 1.1 (0.8-1.3) mg/dL Est Cr Clr Drug Dosing 70.52 mL/min Estimated GFR (MDRD) > 60.0 ml/min Glucose 107 H (74-106) mg/dL Calcium 9.0 (8.5-10.1) mg/dL Total Bilirubin 0.8 (0.2-1.0) mg/dL AST 21 (15-37) IU/L ALT 33 (14-63) IU/L Alkaline Phosphatase 62 (46-116) U/L Total Protein 8.0 (6.4-8.2) g/dL Albumin 4.1 (3.4-5.0) g/dL Globulin 3.9 (2.6-4.0) g/dL Albumin/Globulin Ratio 1.1 (0.9-1.6) Meds: Medications Generic Name Dose Route Start Last Admin Trade Name Freq PRN Reason Stop Dose Admin Sodium Chloride 10 ml 06/15/19 11:02 06/15/19 12:22 Saline Flush FLUSH 10 ml ASDIRECTED PRN Administration Keep Vein Open Sodium Chloride 2.5 ml 06/15/19 11:02 06/15/19 12:22 Saline Flush FLUSH 2.5 ml ASDIRECTED PRN Administration Keep Vein Open Discontinued Medications Generic Name Dose Route Start Last Admin Trade Name Freq PRN Reason Stop Dose Admin Dicyclomine HCl 10 mg 06/15/19 12:18 06/15/19 12:22 Bentyl PO 06/15/19 12:19 10 mg ONETIME ONE Administration Iopamidol 100 ml 06/15/19 12:03 06/15/19 12:04 Isovue Multipack-370 (76%) IVPUSH 06/15/19 12:04 100 ml ONETIME STA Administration Departure - Departure Time of Disposition: 12:52 Disposition: Home, Self-Care 01 Condition: Good Clinical Impression: Acute diverticulitis - Discharge Information Prescriptions: Ciprofloxacin HCl [Cipro] 500 mg PO BID 10 Days #20 tablet Dicyclomine [Bentyl] 20 mg PO QID PRN #20 tab PRN Reason: Abdominal Pain metroNIDAZOLE [Flagyl] 500 mg PO TID 10 Days #30 tab Instructions: Diverticulitis, [id number] Referrals: Guevara Ramirez MD [Primary Care Provider] - Forms: ED Department Discharge Additional Instructions: The following information is given to patients seen in the emergency department who are being discharged to home. This information is to outline your options for follow-up care. We provide all patients seen in our emergency department with a follow-up referral. The need for follow-up, as well as the timing and circumstances, are variable depending upon the specifics of your emergency department visit. If you don't have a primary care physician on staff, we will provide you with a referral. We always advise you to contact your personal physician following an emergency department visit to inform them of the circumstance of the visit and for follow-up with them and/or the need for any referrals to a consulting specialist. The emergency department will also refer you to a specialist when appropriate. This referral assures that you have the opportunity for follow-up care with a specialist. All of these measure are taken in an effort to provide you with optimal care, which includes your follow-up. Under all circumstances we always encourage you to contact your private physician who remains a resource for coordinating your care. When calling for follow-up care, please make the office aware that this follow-up is from your recent emergency room visit. If for any reason you are refused follow-up, please contact the [facility] Emergency Department at and asked to speak to the emergency department charge nurse. [facility] Primary [facility] [address] [place] [address] [facility] [address] [place] [id number] Take antibiotic as instructed Follow up with general surgery, call number to schedule an appointment Return to ED as needed as discussed - My Orders Last 24 Hours: My Active Orders 06/15/19 11:02 Sodium Chloride 0.9% [Saline Flush] 10 ml FLUSH ASDIRECTED PRN Sodium Chloride 0.9% [Saline Flush] 2.5 ml FLUSH ASDIRECTED PRN Saline Lock Insert [OM.PC] Stat - Assessment/Plan Last 24 Hours: My Active Orders 06/15/19 11:02 Sodium Chloride 0.9% [Saline Flush] 10 ml FLUSH ASDIRECTED PRN Sodium Chloride 0.9% [Saline Flush] 2.5 ml FLUSH ASDIRECTED PRN Saline Lock Insert [OM.PC] Stat
[2019-06-15 11:43] LABS: BLOOD UREA NITROGEN,BUN 12 mg/dL (7.0-18.0); CARBON DIOXIDE,CO2 25.7 mmol/L (21.0-32.0); CHLORIDE,CL 105 mmol/L (98-107); GLUCOSE RANDOM 107 mg/dL (74-106); POTASSIUM,K 4.1 mmol/L (3.5-5.1); SODIUM,NA 142 mmol/L (136-148)
[2019-06-15] MEDS ORDERED: Iopamidol 755 MG/ML 500 ML Multipack Bottle IVPUSH STA (12:03)
[2019-06-15] MEDS ORDERED: Dicyclomine 10 MG Cap PO ONE (12:18)
--- NOTE | 2019-06-15 12:34 | CT ---
Clinical INDICATION: Abdominal pain. History of diverticulitis. TECHNIQUE: Axial intravenously infused CT cuts were performed from the thoracic inlet to just below the ischial tuberosities. 100 mL of Isovue-370 was injected via the right antecubital vein. COMPARISON: 11/18/2015. FINDINGS: There is moderate colonic diverticulosis. There is mucosal thickening and pericolonic fat stranding of the of the lower descending colon consistent with moderate acute diverticulitis. There is a small amount of free fluid within the left iliac fossa. There is no abscess. The small bowel appears normal. The appendix is not inflamed. The liver, spleen, pancreas, adrenals and kidneys appear normal all. There are no enlarged lymph nodes within the retroperitoneum or mesentery. There is a small fat containing umbilical hernia. There is also a small fat containing left inguinal hernia. The urinary bladder, seminal vesicles and prostate gland appear normal. There no enlarged iliac or inguinal lymph nodes. There is mild dependent atelectasis at the lung bases. IMPRESSION: 1. Recurrent moderate acute diverticulitis of the proximal sigmoid colon. The is no abscess. 2. Small fat containing umbilical hernia. 3. Small fat containing left inguinal hernia. Please note that all CT scans at this facility use dose modulation, iterative reconstruction, and/or weight-based dosing when appropriate to reduce radiation dose to as low as reasonably achievable. Dictated by Parminder Aldana MD @ Jun 15 2019 12:23PM Signed by Dr. Parminder Aldana @ Jun 15 2019 12:32PM
[2019-06-15 13:14] VITALS: BP 140/75; PULSE 75
== END 2019-06-15 13:14 | disposition home or self-care (01) ==
LOC: MW.ED 10:45
DX: K57.32 Diverticulitis of large intestine without perforation or abscess without bleeding (principal); I10 Essential (primary) hypertension; E03.9 Hypothyroidism, unspecified; E78.00 Pure hypercholesterolemia, unspecified; E66.9 Obesity, unspecified; Z68.31 Body mass index [BMI] 31.0-31.9, adult; Z79.82 Long term (current) use of aspirin; Z79.890 Hormone replacement therapy; Z79.899 Other long term (current) drug therapy
CPT/HCPCS: 36415; 74177; 80053; 85025; 99284; A9270; Q9967

== ENCOUNTER 2020-08-23 06:32 | Emergency (ER) | payer BC ==
[2020-08-23] MEDS ORDERED: Sodium Chloride 0.9% 2.5 ML Syringe FLUSH PRN (07:01)
[2020-08-23] MEDS ORDERED: Sodium Chloride 0.9% 10 ML Syringe FLUSH PRN (07:01)
[2020-08-23 07:26] LABS: BLOOD UREA NITROGEN,BUN 11 mg/dL (7.0-18.0); CARBON DIOXIDE,CO2 24.5 mmol/L (21.0-32.0); CHLORIDE,CL 100 mmol/L (98-107); GLUCOSE RANDOM 116 mg/dL (74-106); POTASSIUM,K 3.7 mmol/L (3.5-5.1); SODIUM,NA 135 mmol/L (136-148)
[2020-08-23] MEDS ORDERED: Iopamidol 755 Mg/ML 100 ML Bottle IVPUSH ONE (07:56)
--- NOTE | 2020-08-23 08:18 | CR ---
INDICATION: Hypoxia COMPARISON: None TECHNIQUE: PA and lateral views of the chest were acquired FINDINGS: TUBES AND LINES: None. HEART AND MEDIASTINUM: The heart size is normal. The mediastinal contour appears normal for patient age. LUNGS AND PLEURAL SPACES: The lungs appear normal.The pleural spaces are unremarkable. OSSEOUS STRUCTURES: Age-appropriate appearance. No acute focal finding. IMPRESSION: No evidence of active pulmonary disease. Dictated by Stalin Yan MD @ Aug 23 2020 8:16AM Signed by Dr. Stalin Yan @ Aug 23 2020 8:16AM
--- NOTE | 2020-08-23 08:26 | CT ---
INDICATION: Left lower quadrant pain. History of diverticulitis. COMPARISON: June 15, 2019 TECHNIQUE: CT examination of the abdomen and pelvis was performed following the uneventful intravenous administration of 100 cc of Isovue 370. Thin section axial images were obtained from the lung bases through the pubic symphysis. Oral contrast was not administered. Please note that all CT scans at this facility use dose modulation, iterative reconstruction, and/or weight-based dosing when appropriate to reduce radiation dose to as low as reasonably achievable. FINDINGS: LUNG BASES: Atelectasis at the lung bases. Atherosclerotic vascular calcifications including the coronary arteries.Small hiatal hernia. LIVER/BILIARY SYSTEM:The liver is normal in size and configuration. There is no focal mass and there is no intra- or extra hepatic biliary ductal dilatation.The gall bladder appears normal. Diffuse hepatic steatosis. ADRENALS: Normal KIDNEYS, URETERS and BLADDER:The kidneys appear normal. No visible mass, calculus or hydronephrosis. The ureters and bladder as visualized appear normal. SPLEEN:Normal appearance. PANCREAS: Appears normal. RETROPERITONEUM and MESENTERY: There is no mass, adenopathy or aortic aneurysm. Atherosclerotic vascular calcifications GASTROINTESTINAL SYSTEM: Diffuse diverticulosis. There are findings of acute uncomplicated sigmoid diverticulitis. The patient had diverticulitis in the sigmoid colon on the prior study, as well. No mechanical obstruction. PELVIS: Significantly enlarged prostate..No free fluid or adenopathy OSSEOUS STRUCTURES and ABDOMINAL WALL: There is an age-appropriate appearance of the osseous structures.No significant abdominal wall defect. OTHER: No free fluid or free air. IMPRESSION: 1. Acute uncomplicated diverticulitis involving the sigmoid colon. The patient had acute sigmoid diverticulitis of the sigmoid colon on June 15, 2019, as well. 2. Other incidental findings as discussed above. Please review the comment regarding those findings. Please note that all CT scans at this facility use dose modulation, iterative reconstruction, and/or weight-based dosing when appropriate to reduce radiation dose to as low as reasonably achievable. Dictated by Stalin Yan MD @ Aug 23 2020 8:17AM Signed by Dr. Stalin Yan @ Aug 23 2020 8:24AM
--- NOTE | 2020-08-23 08:40 | EDM.PDOC ---
ED HPI GENERAL MEDICAL PROBLEM - General Chief Complaint: Abdominal Pain Stated Complaint: DIVERTICULITIS FLARE UP Time Seen by Provider: 08/23/20 06:59 Source of Information: Reports: Patient, Old Records History Limitations: Reports: No Limitations - History of Present Illness INITIAL COMMENTS - FREE TEXT/NARRATIVE: This is a very pleasant 65-year-old man with a past medical history of diverticulitis, hypothyroidism, hypertension, and hyperlipidemia presenting with lower abdominal pain. Patient reports a 2-day history of left lower quadrant abdominal pain, constant, nonradiating. Pain feels similar to prior episodes of his diverticulitis. Denies fever, nausea, vomiting, hematemesis, bloody stools, dysuria, urinary frequency, chest pain, shortness of breath. During triage, the patient was noted to be mildly hypoxic with SPO2 readings in the low 90s. He denies any shortness of breath or chest discomfort, states he was diagnosed with COVID-19 about 3 months ago but is not having any myalgias, dyspnea, or other symptoms to suggest Covid infection. ROS: A 10-point review of systems was negative, except as noted in the HPI (or in the ROS section of this note). Past medical history: Reviewed, no additional pertinent history. Surgical history: Reviewed in system, no additional pertinent history. Social history: Reviewed in system, no additional pertinent history. Family history: Reviewed in system, no additional pertinent history. PHYSICAL EXAM Vital signs reviewed. Nursing notes reviewed. Constitutional: Awake, alert, non-distressed. On nasal cannula. Head: Normocephalic, atraumatic. Eyes: EOMI, conjunctiva normal, no discharge, no scleral icterus. Ears, Nose, Throat: External ears and nose normal, moist oral mucosa. Cardiovascular: 2+ radial pulse, capillary refill less than 2 seconds. Pulmonary: normal work of breathing, no accessory muscle use. Abdomen/GI: Soft, mild left lower quadrant tenderness, nondistended, no guarding or rigidity, no masses. No CVA tenderness. Musculoskeletal: No deformities. Integumentary: Appropriate color for ethnicity, warm, dry, no pallor or jaundice, no rash. Neurologic: Alert, answering questions appropriately, normal speech, no facial droop, moving all extremities well. Psychiatric: Appropriate mood and affect, normal thought process. This patient was seen and evaluated during the 2019 SARS-CoV-2 novel coronavirus pandemic period. Community viral transmission is ongoing at time of this encounter and the emergency department is operating under pandemic response procedures. Abdomen Pain Score (Numeric/FACES): 7 - Related Data Allergies Allergy/AdvReac Type Severity Reaction Status Date / Time No Known Allergies Allergy Verified 08/23/20 06:46 Home Meds: Home Meds Levothyroxine Sodium 125 mg PO DAILY 11/18/15 [History] Rosuvastatin [Crestor] 20 mg PO DAILY 11/18/15 [History] Aspirin [[place] Aspirin EC] 81 mg PO DAILY 09/29/16 [History] Losartan Potassium 25 mg PO DAILY 09/29/16 [History] Dicyclomine [Bentyl] 20 mg PO QID PRN #20 tab 06/15/19 [Rx] Amoxicillin/Potassium Clav [Augmentin 875-125 Tablet] 1 each PO BID 10 Days #20 tablet 08/23/20 [Rx] Past Medical History Cardiovascular History: Reports: High Cholesterol, Hypertension Respiratory History: Reports: Sleep Apnea Other Respiratory History: uses CPAP Other Gastrointestinal History: diverticulitis Musculoskeletal History: Reports: Fracture Other Musculoskeletal History: hx tx for fx hand Endocrine/Metabolic History: Reports: Hypothyroidism, Obesity/BMI 30+ - Infectious Disease History Infectious Disease History: Reports: Chicken Pox, Novel Coronavirus - Past Surgical History Head Surgeries/Procedures: Reports: None GI Surgical History: Reports: Colonoscopy, Hernia, Inguinal Musculoskeletal Surgical History: Reports: Arthroscopic Knee, Shoulder Surgery, Other (See Below) Other Musculoskeletal Surgeries/Procedures:: left acl replaced, right rotator cuff, degloving right hand, Social & Family History - Family History Family Medical History: No Pertinent Family History Cardiac: Reports: CAD Endocrine/Metabolic: Reports: Diabetes, Type I Oncologic: Reports: Other (See Below) Other Oncologic Family History: skin - Tobacco Use Tobacco Use Status *Q: Never Tobacco User - Caffeine Use Caffeine Use: Reports: Coffee - Recreational Drug Use Recreational Drug Use: No ED ROS GENERAL - Review of Systems Review Of Systems: See Below ED EXAM, GI/ABD - Physical Exam Exam: See Below Course - Vital Signs Text/Narrative:: 65-year-old man presenting with 2 days of left lower quadrant abdominal pain. Patient hemodynamically stable, afebrile, well-appearing, looks nontoxic. Differential diagnosis includes but is not limited to: Diverticulitis, perforated viscus, UTI, pyelonephritis, epiploic appendagitis, mesenteric ischemia, AAA, intra-abdominal infection, and many others. 8:42 AM: CBC shows mild erythrocytosis, no leukocytosis, platelets are normal. Lactate is within normal limits. Metabolic panel shows mild hyponatremia 135. Renal function is normal. Bilirubin is mildly elevated at 1.2. Lipase is elevated at 1169. Urinalysis shows small leukocyte esterase, no blood, no nitrites. Chest x-rays are clear. CT scan consistent with acute uncomplicated sigmoid diverticulitis, no mechanical obstruction, no free fluid in the pelvis. Pain seems well controlled. Lipase is elevated but there is no radiographic evidence of pancreatitis and the patient does not have epigastric abdominal pain, so clinically I do not think he has pancreatitis. Patient is stable to discharge home with outpatient course of Augmentin and close primary care follow-up. We did discuss return precautions. Plan: Patient is stable to discharge home with outpatient primary care clinic follow-up. Strict emergency department return precautions were provided, patient indicated understanding. All questions were answered prior to departure. Discharged in good condition. Last Recorded V/S: Last Vital Signs Temp 36.4 C 08/23/20 06:43 Pulse 76 08/23/20 08:30 Resp 16 08/23/20 08:30 BP 138/68 08/23/20 08:30 Pulse Ox 95 08/23/20 08:30 - Orders/Labs/Meds Orders: Active Orders 24 hr Category Date Time Status Nothing Per Oral Diet [DIET] Diet 08/23/20 Breakfast Active Sodium Chloride 0.9% [Saline Flush] Med 08/23/20 07:01 Active 10 ml FLUSH ASDIRECTED PRN Sodium Chloride 0.9% [Saline Flush] Med 08/23/20 07:01 Active 2.5 ml FLUSH ASDIRECTED PRN Saline Lock Insert [OM.PC] Stat Oth 08/23/20 07:01 Ordered Medication Orders Sodium Chloride (Saline Flush) 10 ml FLUSH ASDIRECTED PRN PRN Reason: Keep Vein Open Last Admin: 08/23/20 07:12 Dose: 10 ml Documented by: LATASHA Sodium Chloride (Saline Flush) 2.5 ml FLUSH ASDIRECTED PRN PRN Reason: Keep Vein Open Last Admin: 08/23/20 07:12 Dose: 2.5 ml Documented by: LATASHA Labs: Laboratory Tests 08/23/20 08/23/20 08/23/20 Range/Units 06:58 06:58 06:58 WBC 10.37 (4.0-11.0) K/uL RBC 5.28 (4.50-5.90) M/uL Hgb 17.1 H (13.0-17.0) g/dL Hct 50.3 H (38.0-50.0) % MCV 95.3 (80.0-98.0) fL MCH 32.4 H (27.0-32.0) pg MCHC 34.0 (31.0-37.0) g/dL RDW Std Deviation 43.5 (28.0-62.0) fl RDW Coeff of Bridget 13 (11.0-15.0) % Plt Count 248 (150-400) K/uL MPV 9.80 (7.40-12.00) fL Neut % (Auto) 78.4 (48.0-80.0) % Lymph % (Auto) 11.2 L (16.0-40.0) % Person % (Auto) 8.8 (0.0-15.0) % Eos % (Auto) 1.4 (0.0-7.0) % Baso % (Auto) 0.2 (0.0-1.5) % Neut # (Auto) 8.1 H (1.4-5.7) K/uL Lymph # (Auto) 1.2 (0.6-2.4) K/uL Person # (Auto) 0.9 H (0.0-0.8) K/uL Eos # (Auto) 0.2 (0.0-0.7) K/uL Baso # (Auto) 0.0 (0.0-0.1) K/uL Nucleated RBC % 0.0 /100WBC Nucleated RBCs # 0 K/uL Lactate (0.20-2.00) mmol/L Sodium 135 L (136-148) mmol/L Potassium 3.7 (3.5-5.1) mmol/L Chloride 100 (98-107) mmol/L Carbon Dioxide 24.5 (21.0-32.0) mmol/L BUN 11 (7.0-18.0) mg/dL Creatinine 1.1 (0.8-1.3) mg/dL Est Cr Clr Drug Dosing 70.97 mL/min Estimated GFR (MDRD) > 60.0 ml/min Glucose 116 H (74-106) mg/dL Calcium 9.3 (8.5-10.1) mg/dL Total Bilirubin 1.2 H (0.2-1.0) mg/dL AST 15 (15-37) IU/L ALT 26 (14-63) IU/L Alkaline Phosphatase 58 (46-116) U/L Creatine Kinase 48 (26-308) U/L Total Protein 7.5 (6.4-8.2) g/dL Albumin 4.1 (3.4-5.0) g/dL Globulin 3.4 (2.6-4.0) g/dL Albumin/Globulin Ratio 1.2 (0.9-1.6) Lipase 1169 H (73-393) U/L Urine Color Urine Appearance Urine pH (5.0-8.0) Ur Specific Clifford (1.001-1.035) Urine Protein (NEGATIVE) mg/dL Urine Glucose (UA) (NEGATIVE) mg/dL Urine Ketones (NEGATIVE) mg/dL Urine Occult Blood (NEGATIVE) Urine Nitrite (NEGATIVE) Urine Bilirubin (NEGATIVE) Urine Urobilinogen (<2.0) EU/dL Ur Leukocyte Esterase (NEGATIVE) Urine RBC (0-2/HPF) Urine WBC (0-5/HPF) Ur Epithelial Cells (NONE-FEW) Urine Bacteria (NEGATIVE) Urine Mucus (NONE-MOD) 08/23/20 08/23/20 Range/Units 07:05 07:12 WBC (4.0-11.0) K/uL RBC (4.50-5.90) M/uL Hgb (13.0-17.0) g/dL Hct (38.0-50.0) % MCV (80.0-98.0) fL MCH (27.0-32.0) pg MCHC (31.0-37.0) g/dL RDW Std Deviation (28.0-62.0) fl RDW Coeff of Bridget (11.0-15.0) % Plt Count (150-400) K/uL MPV (7.40-12.00) fL Neut % (Auto) (48.0-80.0) % Lymph % (Auto) (16.0-40.0) % Person % (Auto) (0.0-15.0) % Eos % (Auto) (0.0-7.0) % Baso % (Auto) (0.0-1.5) % Neut # (Auto) (1.4-5.7) K/uL Lymph # (Auto) (0.6-2.4) K/uL Person # (Auto) (0.0-0.8) K/uL Eos # (Auto) (0.0-0.7) K/uL Baso # (Auto) (0.0-0.1) K/uL Nucleated RBC % /100WBC Nucleated RBCs # K/uL Lactate 1.2 (0.20-2.00) mmol/L Sodium (136-148) mmol/L Potassium (3.5-5.1) mmol/L Chloride (98-107) mmol/L Carbon Dioxide (21.0-32.0) mmol/L BUN (7.0-18.0) mg/dL Creatinine (0.8-1.3) mg/dL Est Cr Clr Drug Dosing mL/min Estimated GFR (MDRD) ml/min Glucose (74-106) mg/dL Calcium (8.5-10.1) mg/dL Total Bilirubin (0.2-1.0) mg/dL AST (15-37) IU/L ALT (14-63) IU/L Alkaline Phosphatase (46-116) U/L Creatine Kinase (26-308) U/L Total Protein (6.4-8.2) g/dL Albumin (3.4-5.0) g/dL Globulin (2.6-4.0) g/dL Albumin/Globulin Ratio (0.9-1.6) Lipase (73-393) U/L Urine Color YELLOW Urine Appearance CLEAR Urine pH 6.0 (5.0-8.0) Ur Specific Clifford 1.020 (1.001-1.035) Urine Protein NEGATIVE (NEGATIVE) mg/dL Urine Glucose (UA) NEGATIVE (NEGATIVE) mg/dL Urine Ketones NEGATIVE (NEGATIVE) mg/dL Urine Occult Blood NEGATIVE (NEGATIVE) Urine Nitrite NEGATIVE (NEGATIVE) Urine Bilirubin NEGATIVE (NEGATIVE) Urine Urobilinogen 1.0 (<2.0) EU/dL Ur Leukocyte Esterase SMALL H (NEGATIVE) Urine RBC NONE SEEN (0-2/HPF) Urine WBC 0-2 (0-5/HPF) Ur Epithelial Cells FEW (NONE-FEW) Urine Bacteria FEW (NEGATIVE) Urine Mucus LIGHT (NONE-MOD) Meds: Medications Generic Name Dose Route Start Last Admin Trade Name Freq PRN Reason Stop Dose Admin Sodium Chloride 10 ml 08/23/20 07:01 08/23/20 07:12 Saline Flush FLUSH 10 ml ASDIRECTED PRN Administration Keep Vein Open Sodium Chloride 2.5 ml 08/23/20 07:01 08/23/20 07:12 Saline Flush FLUSH 2.5 ml ASDIRECTED PRN Administration Keep Vein Open Discontinued Medications Generic Name Dose Route Start Last Admin Trade Name Freq PRN Reason Stop Dose Admin Iopamidol 100 ml 08/23/20 07:56 08/23/20 07:57 Isovue-370 (76%) IVPUSH 08/23/20 07:57 100 ml ONETIME ONE Administration Departure - Departure Time of Disposition: 09:11 Disposition: Home, Self-Care 01 Condition: Good Clinical Impression: Acute diverticulitis - Discharge Information *PRESCRIPTION DRUG MONITORING PROGRAM REVIEWED*: Not Applicable *COPY OF PRESCRIPTION DRUG MONITORING REPORT IN PATIENT LAM: Not Applicable Referrals: Guevara Ramirez MD [Primary Care Provider] - Forms: ED Department Discharge Additional Instructions: You were seen in the emergency department for your CT scan showed uncomplicated diverticulitis. We are going to treat you with a 10-day course of antibiotics. You can also take [id number] acetaminophen or ibuprofen as needed for pain. Please follow-up with your primary medical doctor in the next week or so to be sure that you are doing better. Warning signs to come back to the ER include: Severe abdominal pain, fever, chills, bloody vomit, bloody bowel movements, or any other new or concerning symptoms. Please return the emergency department immediately if your symptoms worsen or if you feel worse. Thank you for choosing the [facility] emergency department in [place] for your medical needs today. It was a pleasure caring for you. The following information is given to patients seen in the emergency department who are being discharged. This information is to outline your options for follow-up care. We provide all patients seen in our emergency department with a follow-up referral. The need for follow-up, as well as the timing and circumstances, are variable depending upon the specifics of your emergency department visit. If you don't have a primary care physician on staff, we will provide you with a referral. We always advise you to contact your personal physician following an emergency department visit to inform them of the circumstance of the visit and for follow-up with them and/or the need for any referrals to a consulting specialist. The emergency department will also refer you to a specialist when appropriate. This referral assures that you have the opportunity for follow-up care with a specialist. All of these measure are taken in an effort to provide you with optimal care, which includes your follow-up. Under all circumstances we always encourage you to contact your private physician who remains a resource for coordinating your care. When calling for follow-up care, please make the office aware that this follow-up is from your recent emergency room visit. If for any reason you are refused follow-up, please contact the [facility] Emergency Department at and asked to speak to the emergency department charge nurse. If you do not have a primary care physician that is caring for you, you can contact these clinics below to set up an appointment to establish care: [facility] - Primary Care [address] [place] [id number] [facility] [address] [place] [address] Sepsis Event Note (ED) - Evaluation Sepsis Screening Result: No Definite Risk - Focused Exam Vital Signs: Vital Signs Temp Pulse Resp BP Pulse Ox 08/23/20 08:30 76 16 138/68 95 08/23/20 07:18 93 L 08/23/20 07:17 78 16 119/66 88 L 08/23/20 06:43 36.4 C 92 17 126/58 L 96 - My Orders Last 24 Hours: My Active Orders 08/23/20 Breakfast Nothing Per Oral Diet [DIET] 08/23/20 07:01 Sodium Chloride 0.9% [Saline Flush] 10 ml FLUSH ASDIRECTED PRN Sodium Chloride 0.9% [Saline Flush] 2.5 ml FLUSH ASDIRECTED PRN Saline Lock Insert [OM.PC] Stat - Assessment/Plan Last 24 Hours: My Active Orders 08/23/20 Breakfast Nothing Per Oral Diet [DIET] 08/23/20 07:01 Sodium Chloride 0.9% [Saline Flush] 10 ml FLUSH ASDIRECTED PRN Sodium Chloride 0.9% [Saline Flush] 2.5 ml FLUSH ASDIRECTED PRN Saline Lock Insert [OM.PC] Stat
[2020-08-23 09:32] VITALS: BP 133/68; PULSE 74
== END 2020-08-23 09:24 | disposition home or self-care (01) ==
LOC: MW.ED 06:32
DX: K57.32 Diverticulitis of large intestine without perforation or abscess without bleeding (principal); E78.00 Pure hypercholesterolemia, unspecified; I10 Essential (primary) hypertension; E03.9 Hypothyroidism, unspecified; E66.9 Obesity, unspecified; Z68.30 Body mass index [BMI] 30.0-30.9, adult; Z86.19 Personal history of other infectious and parasitic diseases; Z79.899 Other long term (current) drug therapy; Z79.82 Long term (current) use of aspirin
CPT/HCPCS: 36415; 71046; 74177; 80053; 81001; 82550; 83605; 83690; 85025; 99284; Q9967

== ENCOUNTER 2023-03-09 07:26 | Day surgery (SDC) | payer BC, MEDICARE ==
[~2023-03-09 07:26] MED LIST changes: -Bupivacaine 0.25%/EPINEPHrine 1:200,000 10 ML SDV ONE; -Bupivacaine 0.5% 30 ML SDV ONE; -Lidocaine 2% 5 ML SDV ONE; -Midazolam 1 MG/ML 2 ML SDV ONE; -Propofol 200 MG/20 ML SDV ONE; -Rocuronium 10 MG/ML 10 ML Syringe ONE; -Sodium Chloride 0.9% 10 ML Syringe FLUSH PRN; -Sodium Chloride 0.9% 2.5 ML Syringe FLUSH PRN; -Succinylcholine/Normal Saline 200 MG/10 ML Syringe ONE; -ceFAZolin 2 GM in Premix Bag 1 BAG IV ONE; -fentaNYL 100 MCG/2 ML SDV ONE
[2023-03-09] MEDS ORDERED: Propofol 200 MG/20 ML SDV ONE (07:31)
[2023-03-09] MEDS ORDERED: Lidocaine 2% 5 ML SDV ONE (07:31)
[2023-03-09] MEDS ORDERED: fentaNYL 100 MCG/2 ML SDV ONE (07:31)
[2023-03-09 12:15] VITALS: BP 134/72; PULSE 57
== END 2023-03-09 09:55 | disposition home or self-care (01) ==
LOC: MW.SDS 07:26
PROVIDERS: ATTEND Surgery
DX: K57.30 Diverticulosis of large intestine without perforation or abscess without bleeding (principal); D12.0 Benign neoplasm of cecum; F41.9 Anxiety disorder, unspecified; K57.92 Diverticulitis of intestine, part unspecified, without perforation or abscess without bleeding; I10 Essential (primary) hypertension; E78.00 Pure hypercholesterolemia, unspecified; E78.5 Hyperlipidemia, unspecified; E03.9 Hypothyroidism, unspecified; G47.33 Obstructive sleep apnea (adult) (pediatric); E66.9 Obesity, unspecified; Z79.82 Long term (current) use of aspirin; Z79.899 Other long term (current) drug therapy; Z87.891 Personal history of nicotine dependence; Z86.010 Personal history of colon polyps; Z68.31 Body mass index [BMI] 31.0-31.9, adult
CPT/HCPCS: 45380; J2704; J3010; J7120; J3490